=== PATIENT | female | born 1995 | race Caucasian/White ===

== ENCOUNTER 2018-09-27 22:15 | Emergency (ER) | payer SELFPAY ==
[2018-09-28 00:01] VITALS: BP 111/69
[2018-09-28] MEDS ORDERED: ZOFRAN ODT PO ONE (00:08)
[2018-09-28] MEDS ORDERED: TORADOL IM ONE (00:08)
--- NOTE | 2018-09-28 00:09 | Emergency Department Report ---
ED Headache HPI - General Chief Complaint: Headache Stated Complaint: HEADACHE Time Seen by Provider: 09/27/18 23:49 - History of Present Illness Initial Comments: This is a 22-year-old female who presents with left-sided headache for 2 weeks. Patient states headache is lasting usually for 2 hours. She is currently taken Tylenol which calms down headache but it slowly returns. Patient also reports some dizziness associated with symptoms. She reports pain in the throbbing pressure sensation to left side head. Patient states this is the first time she's ever had a headache. She denies visual changes, nausea or vomiting, chest pain, shortness of breath. Timing/Duration: 1-3 hours Quality: pressure, throbbing Head Injury Location: other (left-sided ) Recent Head Trauma: no recent headache/trauma Modifying Factors: improves with: exposure to light Associated Symptoms: other (vertigo). denies: confusion, fatigue, facial pain, fever/chills, flushing, loss of consciousness, nausea/vomiting, nasal congestion, nasal drainage, numbness in legs/feet, rash, seizures, sinus infection, stiff neck, vision changes, weakness Allergies/Adverse Reactions: Allergies No Known Allergies Allergy (Unverified 09/27/18 23:21) Home Medications: Ambulatory Orders Naproxen [Naprosyn] 500 mg PO TID PRN #15 tablet 09/28/18 ED Review of Systems ROS: Stated complaint: HEADACHE Other details as noted in HPI Constitutional: denies: chills, fever Respiratory: denies: cough, shortness of breath, wheezing Cardiovascular: denies: chest pain, palpitations Gastrointestinal: denies: abdominal pain, nausea, diarrhea Neurological: headache, vertigo. denies: weakness, paresthesias Psychiatric: denies: anxiety, depression ED Past Medical Hx - Past Medical History Previous Medical History?: No - Surgical History Past Surgical History?: No - Social History Smoking Status: Never Smoker Substance Use Type: None - Medications Home Medications: Home Medications Medication Instructions Recorded Confirmed Last Taken Type Naproxen [Naprosyn] 500 mg PO TID PRN #15 tablet 09/28/18 Unknown Rx ED Physical Exam - General Limitations: No Limitations General appearance: alert, in no apparent distress - Head Head exam: Present: atraumatic, normocephalic - Respiratory Respiratory exam: Present: normal lung sounds bilaterally. Absent: respiratory distress - Cardiovascular Cardiovascular Exam: Present: regular rate, normal rhythm. Absent: systolic murmur, diastolic murmur, rubs, gallop - GI/Abdominal GI/Abdominal exam: Present: soft, normal bowel sounds. Absent: distended, tenderness, guarding, rebound, rigid, organomegaly, mass - Neurological Exam Neurological exam: Present: alert, oriented X3, normal gait - Psychiatric Psychiatric exam: Present: normal affect, normal mood - Skin Skin exam: Present: warm, dry, intact, normal color. Absent: rash ED Course Vital Signs 09/27/18 09/27/18 22:27 23:48 Temperature 98.9 F 98.6 F Pulse Rate 79 80 Respiratory 16 18 Rate Blood Pressure 114/76 Blood Pressure 111/69 [Left] O2 Sat by Pulse 100 100 Oximetry ED Medical Decision Making - Radiology Data Radiology results: report reviewed FINAL REPORT EXAM: CT HEAD/BRAIN WO CON HISTORY: headache TECHNIQUE: CT was performed from the foramen magnum through the vertex in the axial plane without the use of intravenous contrast. PRIORS: None. FINDINGS: The hall/white matter attenuation pattern is normal. There is no mass lesion or mass effect. There are no abnormal extra-axial fluid collections. There is no evidence of acute intracranial hemorrhage or infarct. The ventricles are of normal size and configuration. The skull and orbits are unremarkable. The visualized paranasal sinuses are clear. IMPRESSION: Normal CT of the head. - Medical Decision Making This is a 22 y.o. female that presents with headache for 2 weeks. No past medical history. Patient is stable and was examined by me. Given toradol and zofran. CT of head obtained and dictated by radiologist. Normal CT of the head. Patient reports feeling better. Tension headache. Start naproxen for pain. No further questions noted by the patient. Discharged home in stable condition. Follow up with PCP in 24-72 hours. Critical care attestation.: If time is entered above; I have spent that time in minutes in the direct care of this critically ill patient, excluding procedure time. ED Disposition Clinical Impression: Headache Qualifiers: Headache type: tension-type Headache chronicity pattern: acute headache Intractability: not intractable Qualified Code(s): G44.209 - Tension-type headache, unspecified, not intractable Disposition: DC-01 TO HOME OR SELFCARE Is pt being admited?: No Does the pt Need Aspirin: No Condition: Stable Instructions: Tension Headache (ED), Acute Headache (ED) Additional Instructions: Take medication at start of headache. Moderate caffeine intake. Eat at scheduled times or 3 meals a day with snacks. Follow up with primary care provider in 24-72 hours. Prescriptions: Naproxen [Naprosyn] 500 mg PO TID PRN #15 tablet PRN Reason: Pain , Severe (7-10) Referrals: KEMAR HAYNES DO [Primary Care Provider] - 3-5 Days [facility] [Outside] - 3-[address] [facility] [Outside] - 3-5 Days Time of Disposition: 02:16
[2018-09-28 00:52] LABS: HCG Qualitative,Urine Negative (Negative)
--- NOTE | 2018-09-28 01:52 | Cat Scan Report ---
FINAL REPORT EXAM: CT HEAD/BRAIN WO CON HISTORY: headache TECHNIQUE: CT was performed from the foramen magnum through the vertex in the axial plane without th e use of intravenous contrast. PRIORS: None. FINDINGS: The hall/white matter attenuation pattern is normal. There is no mass lesion or mass effect. There ar e no abnormal extra-axial fluid collections. There is no evidence of acute intracranial hemorrhage or infarct. The ventricles are of normal size and configuration. The skull and orbits are unremarkable . The visualized paranasal sinuses are clear. IMPRESSION: Normal CT of the head.
== END 2018-09-28 02:29 | disposition home or self-care (01) ==
LOC: ED 22:15
DX: G44.209 Tension-type headache, unspecified, not intractable (principal)
CPT/HCPCS: 70450; 81025; 96372; 99284; J1885; Q0162